=== PATIENT | female | born 1960 | race Caucasian/White ===

== ENCOUNTER 2016-10-24 08:27 | Emergency (ER) | payer OTHER ==
[2016-10-24] MEDS ORDERED: Sodium Chloride 0.9% 1000 ML 1,000 ML IV STA (08:56)
[2016-10-24] MEDS ORDERED: Sodium Chloride 0.9% 1000 ML 1,000 ML ONE (09:00)
--- NOTE | 2016-10-24 09:03 | ERPHSYRPT ---
- History of Present Illness Time Seen by Provider: 10/24/16 08:52 Source: patient Exam Limitations: no limitations Patient Subjective Stated Complaint: pt co weakness that started this morning, pt has been ill since friday with abd pain, no vomitng or loose stools, started eating yesterday,has eat today, pt denies any pain Triage Nursing Assessment: pt alert, walked in and undressed seld,but appears weak, has vague syptoms, resp easy, skin w/d, no edema and no pain Physician History: 56-year-old white female arrives with complaint of feeling weak since today she states she's been having palpitations today she states that she has been having low suprapubic abdominal pain since Friday she has no vomiting no diarrhea no melena no hematochezia she states that she has had similar symptoms in the past and she said noted to have hypokalemia she does state that she had her potassium checked last week and this was 3.8. Patient without fever. Past medical history includes high blood pressure, mitral valve prolapse. Spell surgical history includes appendectomy cholecystectomy Timing/Duration: other (suprapubic abdominal pain for 2 days, weak today palpitations today) Severity: moderate Modifying Factors: Worsens With: eating, immobilization, medication, movement, rest, acetaminophen, ibuprofen Associated Symptoms: abdominal pain, malaise, weakness, other (palpitations), No nausea, No vomiting, No shortness of breath, No heartburn, No diaphoresis, No cough, No chills, No chest pain, No fever, No headaches, No loss of appetite , No rash, No syncope, No seizure Allergies/Adverse Reactions: No Known Drug Allergies Allergy (Verified 10/24/16 08:39) Home Medications: Aspirin [Aspir-Low] 81 mg DAILY 10/24/16 [History] Nebivolol HCl [Bystolic] 5 mg DAILY 10/24/16 [History] Potassium Chloride 10 Meq Tab* [Klor Con 10 MEQ] 10 meq BID 10/24/16 [History ] Hx Influenza Vaccination/Date Given: No Hx Pneumococcal Vaccination/Date Given: No Immunizations Up to Date: Yes - Review of Systems Constitutional: Fatigue, Malaise, Weakness, No Fever, No Chills, No Lethargy, No Night Sweats, No Weight Loss Eyes: No Symptoms Ears, Nose, & Throat: No Symptoms, No Ear Pain, No Ear Discharge, No Hearing Changes, No Tinnitus, No Nose Pain, No Nose Congestion, No Nose Discharge, No Sinus Drainage, No Epistaxis, No Mouth Pain, No Mouth Swelling, No Loose Teeth, No Throat Pain, No Throat Swelling, No Hoarse, No Painful Swallowing, No Snoring , No Stridor Respiratory: No Cough, No Dyspnea Cardiac: Palpitations, No Chest Pain, No Edema, No Syncope, No Orthopnea Abdominal/Gastrointestinal: Abdominal Pain (suprapubic abdominal pain), No Nausea, No Vomiting, No Diarrhea, No Constipation, No Hematemesis, No Hematochezia, No Melena, No Dysphagia, No Appetite Changes Genitourinary Symptoms: No Dysuria, No Frequency, No Hematuria, No Hesitancy, No Incontinence, No Urgency, No Urinary Retention, No Flank Pain, No Menorrhagia , No , No Vaginal Bleeding, No Vaginal Discharge, No Vaginal Itching Musculoskeletal: No Back Pain, No Neck Pain Skin: No Rash Neurological: No Dizziness, No Focal Weakness, No Sensory Changes Psychological: No Symptoms Endocrine: No Symptoms All Other Systems: Reviewed and Negative - Past Medical History Pertinent Past Medical History: Yes Neurological History: No Pertinent History ENT History: No Pertinent History Cardiac History: Hypertension, Other Respiratory History: No Pertinent History Endocrine Medical History: No Pertinent History Musculoskeletal History: No Pertinent History GI Medical History: No Pertinent History History: No Pertinent History Psycho-Social History: No Pertinent History Female Reproductive Disorders: No Pertinent History Other Medical History: mitral valve prolapse - Past Surgical History Past Surgical History: Yes Neuro Surgical History: No Pertinent History Cardiac: No Pertinent History Respiratory: No Pertinent History Gastrointestinal: Appendectomy, Cholecystectomy Genitourinary: No Pertinent History Musculoskeletal: No Pertinent History Female Surgical History: No Pertinent History - Social History Smoking Status: Never smoker Exposure to second hand smoke: No Drug Use: none Patient Lives Alone: No - Female History Hx Last Menstrual Period: post - Nursing Vital Signs Nursing Vital Signs: Initial Vital Signs Temperature 97.9 F Temperature Source Oral Pulse Rate 88 Respiratory Rate 16 Blood Pressure [Right Arm] 130/64 Pain Intensity 0 - Physical Exam General Appearance: mild distress, alert, No moderate distress, No severe distress Eye Exam: PERRL/EOMI, eyes nml inspection, No scleral icterus, No pale conjunctivae, No photophobia, No post op pupil defect (L), No post op pupil defect (R), No EOM palsy/anisocoria Ears, Nose, Throat Exam: normal ENT inspection, TMs normal, pharynx normal, moist mucous membranes Neck Exam: normal inspection, non-tender, supple, full range of motion Respiratory Exam: normal breath sounds, lungs clear, No respiratory distress Cardiovascular Exam: regular rate/rhythm, normal heart sounds, normal peripheral pulses Gastrointestinal/Abdomen Exam: soft, normal bowel sounds, tenderness ( suprapubic abdominal tenderness), No mass Back Exam: normal inspection, normal range of motion, No CVA tenderness, No vertebral tenderness Extremity Exam: normal inspection, normal range of motion, pelvis stable Neurologic Exam: alert, oriented x 3, cooperative, normal mood/affect, nml cerebellar function, nml station & gait, sensation nml, No motor deficits Skin Exam: normal color, warm, dry, No rash SpO2 Interpretation: normal (100%) SpO2: 100 Oxygen Delivery: Room Air - Course Nursing assessment & vital signs reviewed: Yes EKG Interpreted by Me: RATE (65 bpm), Sinus Rhythm, NORMAL AXIS, NORMAL QRS, Other (EKG: Sinus rhythm 65 bpm normal axis, no acute ST or T wave changes essentially normal EKG) Ordered Tests: Active Orders 24 hr Category Date Time Status EKG-ER Only STAT Care 10/24/16 08:56 Active IV Insertion STAT Care 10/24/16 08:56 Active Orthostatic Vital Signs STAT Care 10/24/16 10:24 Active AMYLASE Stat Lab 10/24/16 09:00 Completed CBC W DIFF Stat Lab 10/24/16 09:00 Completed CMP Stat Lab 10/24/16 09:00 Completed HCG QUALITATIVE,SERUM Stat Lab 10/24/16 09:00 Completed LIPASE Stat Lab 10/24/16 09:00 Completed TROPONIN Stat Lab 10/24/16 09:00 Completed UA W/ MICROSCOPIC Stat Lab 10/24/16 10:00 Completed Urine Triage Profile Stat Lab 10/24/16 09:00 Completed Medication Summary Discontinued Medications Generic Name Dose Route Start Last Admin Trade Name Freq PRN Reason Stop Dose Admin Sodium Chloride 1,000 mls @ 999 mls/hr 10/24/16 08:56 10/24/16 09:11 Sodium Chloride 0.9% 1000 Ml IV 10/24/16 09:56 999 mls/hr .Q1H1M STA Administration Sodium Chloride Confirm 10/24/16 09:00 Sodium Chloride 0.9% 1000 Ml Administered 10/24/16 09:01 Dose 1,000 mls @ ud .ROUTE .STK-MED ONE Lab/Rad Data: Laboratory Result Diagrams 10/24/16 09:00 10/24/16 09:00 Laboratory Results 10/24/16 10/24/16 10/24/16 Range/Units 10:00 09:00 09:00 WBC (4.0-10.5) K/mm3 RBC (4.1-5.4) M/mm3 Hgb (12.0-16.0) gm/dl Hct (35-47) % MCV (78-100) fl MCH (26-32) pg MCHC (32-36) g/dl RDW (11.5-14.0) % Plt Count (150-450) K/mm3 MPV (6-9.5) fl Gran % (36.0-66.0) % Lymphocytes % (24.0-44.0) % Monocytes % (0.0-12.0) % Eosinophils % (0.00-5.0) % Basophils % (0.0-0.4) % Basophils # (0-0.4) Sodium (136-145) mEq/L Potassium (3.5-5.1) mEq/L Chloride (98-107) mEq/L Carbon Dioxide (21-32) mEq/L Anion Gap (5-15) MEQ/L BUN (9-20) mg/dL Creatinine (0.55-1.30) mg/dl Estimated GFR ML/MIN Glucose (70-110) MG/DL Calcium (8.5-10.1) mg/dL Total Bilirubin (0.2-1.0) mg/dL AST (15-37) U/L ALT (12-78) U/L Alkaline Phosphatase (46-116) U/L Troponin I (0.000-0.056) ng/ml Serum Total Protein (6.4-8.2) gm/dL Albumin (3.4-5.0) g/dL Amylase (25-115) U/L Lipase (73-393) U/L Serum , Qual NEGATIVE (Negative) Ur Collection Type CLEAN CATCH Urine Color YELLOW (YELLOW) Urine Appearance CLEAR (CLEAR) Urine pH 5.0 (5-6) Ur Specific [place] <=1.005 (1.005-1.025) Urine Protein NEGATIVE (Negative) Urine Glucose (UA) NEGATIVE (NEGATIVE) mg/dL Urine Ketones NEGATIVE (NEGATIVE) Urine Nitrite NEGATIVE (NEGATIVE) Urine Bilirubin NEGATIVE (NEGATIVE) Urine Urobilinogen 0.2 (0-1) mg/dL Urine WBC (Auto) TRACE (NEGATIVE) Urine RBC (Auto) MODERATE (0-5) Nathan/ul Urine Microscopic RBC 0-2 (0-2) /HPF Urine Microscopic WBC 0-2 (0-5) /HPF Ur Epithelial Cells FEW (FEW) /HPF Urine Bacteria FEW (NEGATIVE) /HPF Urine Opiates Level (NEGATIVE) Ur Methadone (NEGATIVE) Urine Barbiturates (NEGATIVE) Ur Phencyclidine (PCP) (NEGATIVE) Urine Amphetamine (NEGATIVE) U Benzodiazepine Level (NEGATIVE) Urine Cocaine (NEGATIVE) Urine Marijuana (THC) (NEGATIVE) Influenza Type A Ag NEGATIVE (NEGATIVE) Influenza Type B Ag NEGATIVE (NEGATIVE) RSV (PCR) NEGATIVE (Negative) Specimen Received 10/24/16 1000 10/24/16 10/24/16 10/24/16 Range/Units 09:00 09:00 09:00 WBC 9.3 (4.0-10.5) K/mm3 RBC 4.65 (4.1-5.4) M/mm3 Hgb 14.6 (12.0-16.0) gm/dl Hct 43.3 (35-47) % MCV 93.1 (78-100) fl MCH 31.4 (26-32) pg MCHC 33.7 (32-36) g/dl RDW 12.7 (11.5-14.0) % Plt Count 276 (150-450) K/mm3 MPV 10.2 H (6-9.5) fl Gran % 71.7 H (36.0-66.0) % Lymphocytes % 22.4 L (24.0-44.0) % Monocytes % 4.5 (0.0-12.0) % Eosinophils % 1.2 (0.00-5.0) % Basophils % 0.2 (0.0-0.4) % Basophils # 0.02 (0-0.4) Sodium 140 (136-145) mEq/L Potassium 3.5 (3.5-5.1) mEq/L Chloride 102 (98-107) mEq/L Carbon Dioxide 26.2 (21-32) mEq/L Anion Gap 15.6 H (5-15) MEQ/L BUN 16 (9-20) mg/dL Creatinine 1.07 (0.55-1.30) mg/dl Estimated GFR 56 ML/MIN Glucose 116 H (70-110) MG/DL Calcium 9.5 (8.5-10.1) mg/dL Total Bilirubin 0.3 (0.2-1.0) mg/dL AST 20 (15-37) U/L ALT 24 (12-78) U/L Alkaline Phosphatase 98 (46-116) U/L Troponin I < 0.017 (0.000-0.056) ng/ml Serum Total Protein 8.1 (6.4-8.2) gm/dL Albumin 3.7 (3.4-5.0) g/dL Amylase 54 (25-115) U/L Lipase 125 (73-393) U/L Serum , Qual (Negative) Ur Collection Type Urine Color (YELLOW) Urine Appearance (CLEAR) Urine pH (5-6) Ur Specific [place] (1.005-1.025) Urine Protein (Negative) Urine Glucose (UA) (NEGATIVE) mg/dL Urine Ketones (NEGATIVE) Urine Nitrite (NEGATIVE) Urine Bilirubin (NEGATIVE) Urine Urobilinogen (0-1) mg/dL Urine WBC (Auto) (NEGATIVE) Urine RBC (Auto) (0-5) Nathan/ul Urine Microscopic RBC (0-2) /HPF Urine Microscopic WBC (0-5) /HPF Ur Epithelial Cells (FEW) /HPF Urine Bacteria (NEGATIVE) /HPF Urine Opiates Level NEG. (NEGATIVE) Ur Methadone NEG. (NEGATIVE) Urine Barbiturates NEG. (NEGATIVE) Ur Phencyclidine (PCP) NEG. (NEGATIVE) Urine Amphetamine NEG. (NEGATIVE) U Benzodiazepine Level NEG. (NEGATIVE) Urine Cocaine NEG. (NEGATIVE) Urine Marijuana (THC) NEG. (NEGATIVE) Influenza Type A Ag (NEGATIVE) Influenza Type B Ag (NEGATIVE) RSV (PCR) (Negative) Specimen Received - Progress Progress: improved Progress Note: 10/24/16 10:43 Is a 56-year-old white female with history of mitral valve prolapse high blood pressure arrives with complaint of abdominal pain suprapubic region for 2 days today states she feels weak. On physical examination she had minimal tenderness in the suprapubic region she had normal neurologic exam heart was regular abdomen was nontender lungs were clear patient is afebrile vitals are stable. Patient is given a liter of normal saline she is feeling better. Patient was noted to have EKG normal sinus rhythm [address] or T wave changes essentially normal EKG chemistry was remarkable for a potassium of 3.5. Sodium is 140 chloride 102 bicarbonate 26 glucose 116. Influenza is negative troponin is normal amylase and lipase are normal urinalysis specific gravity less than 1.005 otherwise normal (patient states she 's been drinking lots of fluid patient has been given 1 L of normal saline she is feeling better Will give patient potassium 20 mEq orally. Will discharge patient. Diagnosis suprapubic abdominal pain. Weakness. . . - Departure Time of Disposition: 10:46 Departure Disposition: Home Clinical Impression: Suprapubic abdominal pain, Weakness Condition: Fair Critical Care Time: No Additional Instructions: Return home rest. Plenty of fluids. Continue medications as prescribed by your family doctor. Follow-up with your family doctor. Return for acute distress or for severe symptoms.
[2016-10-24 09:25] LABS: BASOPHIL % 0.2 % (0.0-0.4); Eosinophil % 1.2 % (0.00-5.0); Granulocytes % 71.7 % (36.0-66.0); Lymphocytes % 22.4 % (24.0-44.0); Mean Cell Volume 93.1 fl (78-100); Mean Corpuscular Hemoglobin 31.4 pg (26-32); Mean Platelet Volume 10.2 fl (6-9.5); Monocytes % 4.5 % (0.0-12.0); Platelet Count 276 K/mm3 (150-450); Red Blood Count 4.65 M/mm3 (4.1-5.4); Red Cell Distribution Width 12.7 % (11.5-14.0); White Blood Count 9.3 K/mm3 (4.0-10.5)
[2016-10-24 09:50] LABS: ALBUMIN 3.7 g/dL (3.4-5.0); ALKALINE PHOSPHATASE 98 U/L (46-116); ANION GAP 15.6 MEQ/L (5-15); BILIRUBIN,TOTAL 0.3 mg/dL (0.2-1.0); BLOOD UREA NITROGEN 16 mg/dL (9-20); CHLORIDE 102 mEq/L (98-107); Carbon Dioxide 26.2 mEq/L (21-32); Glucose 116 MG/DL (70-110); LIPASE 125 U/L (73-393); Potassium 3.5 mEq/L (3.5-5.1); SGOT/AST 20 U/L (15-37); SGPT/ALT 24 U/L (12-78); SODIUM 140 mEq/L (136-145); Total Protein 8.1 gm/dL (6.4-8.2)
[2016-10-24 09:51] LABS: TROPONIN < 0.017 ng/ml (0.000-0.056)
[2016-10-24 10:27] LABS: Collection Type CLEAN CATCH
[2016-10-24 10:30] LABS: COMPLETE URINE MICROSCOPIC? YES
[2016-10-24 10:36] LABS: Bacteria FEW /HPF (NEGATIVE); Epithelial Cells FEW /HPF (FEW); WBC 0-2 /HPF (0-5)
[2016-10-24] MEDS ORDERED: Klor Con 10 MEQ PO ONE ×2 (10:42→10:45)
[2016-10-24 10:56] VITALS: BP 135/61; PULSE 80; O2SAT 98
== END 2016-10-24 10:56 | disposition home or self-care (01) ==
LOC: ED 08:27
DX: R10.9 Unspecified abdominal pain (principal); R53.1 Weakness; R00.2 Palpitations; R53.83 Other fatigue; Z87.898 Personal history of other specified conditions; I10 Essential (primary) hypertension
CPT/HCPCS: 36000; 36415; 80053; 80307; 81000; 82150; 83690; 84484; 84703; 85025; 87631; 93005; 96360; 96361; 99284

== ENCOUNTER 2017-09-07 07:09 | Emergency (ER) | payer OTHER ==
[2017-09-07] MEDS ORDERED: Sodium Chloride 0.9% 1000 ML 1,000 ML IV STA ×2 (07:21→07:57)
[2017-09-07] MEDS ORDERED: Sodium Chloride 0.9% 1000 ML 1,000 ML ONE ×2 (07:30→08:35)
[2017-09-07] MEDS ORDERED: Zofran 4 MG/2 ML VIAL IV ONE (07:34)
[2017-09-07] MEDS ORDERED: Zofran 4 MG/2 ML VIAL ONE (07:34)
[2017-09-07 07:35] LABS: BASOPHIL % 0.6 % (0.0-0.4); Basophil (Absolute #) 0.03 (0-0.4); Eosinophil % 0.4 % (0.00-5.0); Eosinophil (Absolute #) 0.02 (0-0.5); Granulocyte Absolute (ANC) 1.86 (1.4-6.9); Granulocytes % 38.6 % (36.0-66.0); Hematocrit 49.2 % (35-47); Hemoglobin 16.4 gm/dl (12.0-16.0); Lymphocyte (Absolute #) 2.15 (1.0-4.6); Lymphocytes % 44.6 % (24.0-44.0); Mean Corpuscular Hgb Concent. 33.3 g/dl (32-36); Mean Platelet Volume 10.3 fl (6-9.5); Monocyte (Absolute #) 0.76 (0.0-1.3); Monocytes % 15.8 % (0.0-12.0); Platelet Count 232 K/mm3 (150-450); Red Blood Count 5.35 M/mm3 (4.1-5.4); Red Cell Distribution Width 12.8 % (11.5-14.0); White Blood Count 4.8 K/mm3 (4.0-10.5)
[2017-09-07 07:42] LABS: Mean Corpuscular Hemoglobin 30.6 pg (26-32)
[2017-09-07 07:56] LABS: ALBUMIN 4.4 g/dL (3.4-5.0); ANION GAP 10.1 MEQ/L (5-15); BILIRUBIN,TOTAL 0.5 mg/dL (0.2-1.0); Calcium 9.7 mg/dL (8.5-10.1); Carbon Dioxide 28.1 mEq/L (21-32); Creatinine 1 1.15 mg/dl (0.55-1.30); Potassium 3.4 mEq/L (3.5-5.1); Total Protein 8.7 gm/dL (6.4-8.2)
[2017-09-07 08:06] VITALS: O2SAT 98
[2017-09-07] MEDS ORDERED: K-LYTE 25 MEQ PO ONE (08:10)
--- NOTE | 2017-09-07 08:32 | ERPHSYRPT ---
- History of Present Illness Time Seen by Provider: 09/07/17 08:30 Source: patient Exam Limitations: no limitations Patient Subjective Stated Complaint: Pt states she has had nausea over the past 3 days. Denies vomiting, DEnies any diarrhea. STAtes she feels weak and dizzy. Triage Nursing Assessment: PT pink, warm, dry. PT able to transfer from wheelchair to cot without difficulty. abdomen soft nontender. bowel sounds present in all 4 quads. Physician History: Pt states she has had nausea over the past 3 days. Denies vomiting, DEnies any diarrhea. STAtes she feels weak and dizzy. Timing/Duration: day(s) (3 days) Severity: moderate Associated Symptoms: loss of appetite, malaise Allergies/Adverse Reactions: No Known Drug Allergies Allergy (Verified 09/07/17 07:28) Home Medications: Potassium Chloride 10 Meq Tab* [Klor Con 10 MEQ] 10 meq PO BID 10/24/16 [ History] Carvedilol 3.125 mg [Coreg 3.125 MG] 3.125 mg PO BID 09/07/17 [History] Hx Tetanus, Diphtheria Vaccination/Date Given: Yes (unknown) Hx Influenza Vaccination/Date Given: No Hx Pneumococcal Vaccination/Date Given: No Immunizations Up to Date: Yes - Review of Systems Constitutional: Malaise, Weakness, No Fever, No Chills Eyes: No Symptoms Ears, Nose, & Throat: No Symptoms Respiratory: No Cough, No Dyspnea Cardiac: No Chest Pain, No Edema, No Syncope Abdominal/Gastrointestinal: No Abdominal Pain, No Nausea, No Vomiting, No Diarrhea Genitourinary Symptoms: No Dysuria Musculoskeletal: No Back Pain, No Neck Pain Skin: No Rash Neurological: No Dizziness, No Focal Weakness, No Sensory Changes Psychological: No Symptoms Endocrine: No Symptoms All Other Systems: Reviewed and Negative - Past Medical History Pertinent Past Medical History: Yes Neurological History: No Pertinent History ENT History: No Pertinent History Cardiac History: Hypertension Respiratory History: No Pertinent History Endocrine Medical History: No Pertinent History Musculoskeletal History: No Pertinent History GI Medical History: No Pertinent History History: No Pertinent History Psycho-Social History: No Pertinent History Female Reproductive Disorders: No Pertinent History Other Medical History: mitral valve prolapse - Past Surgical History Past Surgical History: Yes Neuro Surgical History: No Pertinent History Cardiac: No Pertinent History Respiratory: No Pertinent History Gastrointestinal: Appendectomy Genitourinary: No Pertinent History Musculoskeletal: No Pertinent History Female Surgical History: No Pertinent History - Social History Smoking Status: Never smoker Exposure to second hand smoke: No Drug Use: none Patient Lives Alone: No - Female History Hx Now: No - Nursing Vital Signs Nursing Vital Signs: Initial Vital Signs Temperature 97.8 F 09/07/17 07:23 Pulse Rate 70 09/07/17 07:23 Respiratory Rate 18 09/07/17 07:23 Blood Pressure 144/81 09/07/17 07:23 O2 Sat by Pulse Oximetry 100 09/07/17 07:23 Pain Scale Pain Intensity 0 - Physical Exam General Appearance: no apparent distress, alert Eye Exam: PERRL/EOMI, eyes nml inspection Ears, Nose, Throat Exam: normal ENT inspection, TMs normal, pharynx normal, moist mucous membranes Neck Exam: normal inspection, non-tender, supple, full range of motion Respiratory Exam: normal breath sounds, lungs clear, No respiratory distress Cardiovascular Exam: regular rate/rhythm, normal heart sounds, normal peripheral pulses Gastrointestinal/Abdomen Exam: soft, normal bowel sounds, No tenderness, No mass Back Exam: normal inspection, normal range of motion, No CVA tenderness, No vertebral tenderness Extremity Exam: normal inspection, normal range of motion, pelvis stable Neurologic Exam: alert, oriented x 3, cooperative, normal mood/affect, nml cerebellar function, nml station & gait, sensation nml, No motor deficits Skin Exam: normal color, warm, dry, No rash Lymphatic Exam: No adenopathy SpO2: 98 Oxygen Delivery: Room Air - Course Nursing assessment & vital signs reviewed: Yes Ordered Tests: Active Orders 24 hr Category Date Time Status IV Insertion STAT Care 09/07/17 07:54 Active CBC W DIFF Stat Lab 09/07/17 07:20 Completed CMP Stat Lab 09/07/17 07:20 Completed Medication Summary Generic Name Dose Route Start Last Admin Trade Name Freq PRN Reason Stop Dose Admin Sodium Chloride 1,000 mls @ 999 mls/hr 09/07/17 07:57 09/07/17 08:36 Sodium Chloride 0.9% 1000 Ml IV 09/07/17 08:57 999 mls/hr .Q1H1M STA Administration Discontinued Medications Generic Name Dose Route Start Last Admin Trade Name Freq PRN Reason Stop Dose Admin Sodium Chloride 1,000 mls @ 999 mls/hr 09/07/17 07:21 09/07/17 07:32 Sodium Chloride 0.9% 1000 Ml IV 09/07/17 08:21 999 mls/hr .Q1H1M STA Administration Sodium Chloride Confirm 09/07/17 07:30 Sodium Chloride 0.9% 1000 Ml Administered 09/07/17 07:31 Dose 1,000 mls @ ud .ROUTE .STK-MED ONE Sodium Chloride Confirm 09/07/17 08:35 Sodium Chloride 0.9% 1000 Ml Administered 09/07/17 08:36 Dose 1,000 mls @ ud .ROUTE .STK-MED ONE Ondansetron HCl 4 mg 09/07/17 07:34 09/07/17 07:35 Zofran 4 Mg/2 Ml Vial IV 09/07/17 07:35 4 mg STAT ONE Administration Ondansetron HCl Confirm 09/07/17 07:34 Zofran 4 Mg/2 Ml Vial Administered 09/07/17 07:35 Dose 4 mg .ROUTE .STK-MED ONE Potassium Bicarbonate 50 meq 09/07/17 08:10 09/07/17 08:37 K-Lyte 25 Meq PO 09/07/17 08:11 50 meq STAT ONE Administration Potassium Bicarbonate Confirm 09/07/17 08:37 K-Lyte 25 Meq Administered 09/07/17 08:38 Dose 50 meq .ROUTE .STK-MED ONE Lab/Rad Data: Laboratory Result Diagrams 09/07/17 07:20 09/07/17 07:20 Laboratory Results 09/07/17 09/07/17 Range/Units 07:20 07:20 WBC 4.8 (4.0-10.5) K/mm3 RBC 5.35 (4.1-5.4) M/mm3 Hgb 16.4 H (12.0-16.0) gm/dl Hct 49.2 H (35-47) % MCV 92.0 (78-100) fl MCH 30.6 (26-32) pg MCHC 33.3 (32-36) g/dl RDW 12.8 (11.5-14.0) % Plt Count 232 (150-450) K/mm3 MPV 10.3 H (6-9.5) fl Gran % 38.6 (36.0-66.0) % Lymphocytes % 44.6 H (24.0-44.0) % Monocytes % 15.8 H (0.0-12.0) % Eosinophils % 0.4 (0.00-5.0) % Basophils % 0.6 (0.0-0.4) % Basophils # 0.03 (0-0.4) Sodium 130 L (136-145) mEq/L Potassium 3.4 L (3.5-5.1) mEq/L Chloride 95 L (98-107) mEq/L Carbon Dioxide 28.1 (21-32) mEq/L Anion Gap 10.1 (5-15) MEQ/L BUN 16 (9-20) mg/dL Creatinine 1.15 (0.55-1.30) mg/dl Estimated GFR 52 ML/MIN Glucose 112 H (70-110) MG/DL Calcium 9.7 (8.5-10.1) mg/dL Total Bilirubin 0.50 (0.2-1.0) mg/dL AST 35 (15-37) U/L ALT 39 (12-78) U/L Alkaline Phosphatase 88 (46-116) U/L Serum Total Protein 8.7 H (6.4-8.2) gm/dL Albumin 4.4 (3.4-5.0) g/dL - Progress Progress: improved Counseled pt/family regarding: lab results, diagnosis, need for follow-up - Departure Time of Disposition: 08:45 Departure Disposition: Home Clinical Impression: Influenza A Condition: Stable Critical Care Time: No Referrals: GEORGE LUNA MD [Primary Care Provider] - Instructions: Flu, Adult (DC) Additional Instructions: VIRAL ILLNESS 1. Rest at home and take any prescribed medications as directed or until gone. 2. Offer plenty of fluids as tolerated. 3. Acetaminophen or Ibuprofen as directed. 4. Be sure to follow up with your family physician or return to the emergency department if symptoms change or become worse.
[2017-09-07] MEDS ORDERED: K-LYTE 25 MEQ ONE (08:37)
[2017-09-07 09:06] LABS: INFLUENZA A POSITIVE (NEGATIVE); INFLUENZA B NEGATIVE (NEGATIVE); RESPIRATORY SYNCTIAL VIRUS NEGATIVE (Negative)
[2017-09-07 10:30] VITALS: BP 109/70; PULSE 69
== END 2017-09-07 10:15 | disposition home or self-care (01) ==
LOC: ED 07:09
DX: J11.1 Influenza due to unidentified influenza virus with other respiratory manifestations (principal)
CPT/HCPCS: 36000; 36415; 80053; 85025; 87631; 96360; 96361; 96374; 99284; J2405; A9270-GY

== ENCOUNTER 2019-03-18 08:47 | Emergency (ER) | payer OTHER ==
[2019-03-18] MEDS ORDERED: Sodium Chloride 0.9% 1000 ML 1,000 ML IV SCH (09:30)
[2019-03-18 09:39] LABS: INR 0.97 (0.8-3.0)
[2019-03-18 09:41] LABS: BASOPHIL % 0.3 % (0.0-0.4); Basophil (Absolute #) 0.02 (0-0.4); Eosinophil % 0.7 % (0.00-5.0); Eosinophil (Absolute #) 0.05 (0-0.5); Granulocyte Absolute (ANC) 4.47 (1.4-6.9); Granulocytes % 65.5 % (36.0-66.0); Hematocrit 48.1 % (35-47); Hemoglobin 16.5 gm/dl (12.0-16.0); Lymphocyte (Absolute #) 2.05 (1.0-4.6); Mean Cell Volume 92.5 fl (78-100); Mean Corpuscular Hemoglobin 31.7 pg (26-32); Mean Corpuscular Hgb Concent. 34.3 g/dl (32-36); Mean Platelet Volume 10.5 fl (6-9.5); Monocyte (Absolute #) 0.24 (0.0-1.3); Monocytes % 3.5 % (0.0-12.0); Platelet Count 304 K/mm3 (150-450); Red Cell Distribution Width 12.6 % (11.5-14.0); White Blood Count 6.8 K/mm3 (4.0-10.5)
[2019-03-18] MEDS ORDERED: APRESOLINE 20 MG/ML INJ IV ONE (09:41)
[2019-03-18] MEDS ORDERED: ANTIVERT 25 MG PO ONE (09:42)
[2019-03-18 09:47] LABS: ALKALINE PHOSPHATASE 92 U/L (38-126); ANION GAP 12.2 MEQ/L (5-15); BLOOD UREA NITROGEN 15 mg/dL (7-17); CHLORIDE 106 mmol/L (98-107); Calcium 10.3 mg/dL (8.4-10.2); Carbon Dioxide 28 mmol/L (22-30); Creatinine 1 0.83 mg/dL (0.52-1.04); Glucose 138 mg/dL (74-106); Potassium 3.8 mmol/L (3.5-5.1); SGOT/AST 27 U/L (14-36); SGPT/ALT 24 U/L (0-35); SODIUM 142 mmol/L (137-145); Total Protein 8.7 g/dL (6.3-8.2)
[2019-03-18] MEDS ORDERED: Sodium Chloride 0.9% 1000 ML 1,000 ML ONE (09:52)
[2019-03-18] MEDS ORDERED: Zofran 4 MG/2 ML VIAL IV ONE (09:52)
[2019-03-18] MEDS ORDERED: APRESOLINE 20 MG/ML INJ ONE (09:52)
[2019-03-18] MEDS ORDERED: ANTIVERT 25 MG ONE (09:52)
[2019-03-18] MEDS ORDERED: SUBLIMAZE 100 MCG/2 ML IV ONE (09:52)
--- NOTE | 2019-03-18 10:01 | ERPHSYRPT ---
- History of Present Illness Time Seen by Provider: 03/18/19 09:15 Source: patient Exam Limitations: clinical condition Patient Subjective Stated Complaint: states had onset of dizziness when getting out of bed this am. states it is getting worse. also having nausea. denies v/ d. denies any recent illness. Triage Nursing Assessment: to room per w/c. skin w/d, color normal, resp easy. denies pain. is having some nausea. justen. a/o times four. martínez without difficulty. Physician History: PATIENT WITH A HISTORY OF HYPERTENSION AND MITRAL VALVE PROLAPSE COMPLAINS OF ACUTE ONSET OF LIGHTHEADEDNESS ONSET 0530 THIS AM. SYMPTOMS OF LIGHTHEADEDNESS PROGRESSIVELY WORSE ASSOCIATED WITH NAUSEA, STATES LIKE SHE FEELS LIKE PASSING OUT. BRITTANY BLURRED VISION, SLURRED SPEECH, FOCAL NUMBNESS, WEAKNESS OR TINGLING IN EXTREMITIES. Timing/Duration: today Severity: severe Character of Deficits: other (MARKED LIGHTHEADEDNESS) Deficits: decrease ability to stand Baseline/Normal Cognition: alert oriented x 3 Current Cognition: alert oriented x 3 Baseline Gait: walks w/o assistance Allergies/Adverse Reactions: No Known Drug Allergies Allergy (Verified 03/18/19 09:03) Home Medications: Potassium Chloride 10 Meq Tab* [Klor Con 10 MEQ] 10 meq PO DAILY 10/24/16 [ History] Carvedilol 3.125 mg [Coreg 3.125 MG] 3.125 mg PO DAILY 09/07/17 [History] Hx Tetanus, Diphtheria Vaccination/Date Given: No Hx Influenza Vaccination/Date Given: No Hx Pneumococcal Vaccination/Date Given: No - Review of Systems Constitutional: No Fever, No Chills Eyes: No Symptoms Ears, Nose, & Throat: No Symptoms Respiratory: No Symptoms, No Cough, No Dyspnea Cardiac: No Symptoms, No Chest Pain, No Edema, No Syncope Abdominal/Gastrointestinal: No Symptoms, No Abdominal Pain, No Nausea, No Vomiting, No Diarrhea Genitourinary Symptoms: No Symptoms, No Dysuria Musculoskeletal: No Symptoms, No Back Pain, No Neck Pain Skin: No Symptoms, No Rash Neurological: No Dizziness, No Focal Weakness, No Sensory Changes, No Other ( LIGHTHEADEDNESS) Psychological: No Symptoms Endocrine: No Symptoms All Other Systems: Reviewed and Negative - Past Medical History Pertinent Past Medical History: Yes Neurological History: No Pertinent History ENT History: No Pertinent History Cardiac History: Hypertension Respiratory History: No Pertinent History Endocrine Medical History: No Pertinent History Musculoskeletal History: No Pertinent History GI Medical History: No Pertinent History History: No Pertinent History Psycho-Social History: No Pertinent History Female Reproductive Disorders: No Pertinent History Other Medical History: mitral valve prolapse - Past Surgical History Past Surgical History: Yes Neuro Surgical History: No Pertinent History Cardiac: No Pertinent History Respiratory: No Pertinent History Gastrointestinal: Appendectomy Genitourinary: No Pertinent History Musculoskeletal: No Pertinent History Female Surgical History: No Pertinent History - Social History Smoking Status: Never smoker Exposure to second hand smoke: No Drug Use: none Patient Lives Alone: No - Female History Hx Now: No - Nursing Vital Signs Nursing Vital Signs: Initial Vital Signs Temperature 98.5 F 03/18/19 08:55 Pulse Rate 74 03/18/19 08:55 Respiratory Rate 16 03/18/19 08:55 Blood Pressure 188/78 03/18/19 08:55 O2 Sat by Pulse Oximetry 100 03/18/19 08:55 Pain Scale Pain Intensity 0 - Physical Exam General Appearance: no apparent distress, alert Eye Exam: bilateral eye: PERRL, EOMI Ears, Nose, Throat Exam: normal ENT inspection, moist mucous membranes Neck Exam: normal inspection, non-tender, supple Respiratory: normal breath sounds, lungs clear, airway intact, No respiratory distress Cardiovascular: regular rate/rhythm, No edema Gastrointestinal: soft, normal bowel sounds, No tenderness, No distention Back Exam: normal inspection Extremity Exam: normal inspection, No pedal edema Peripheral Pulses: carotid (R): 2+, carotid (L): 2+, femoral (R): 2+, femoral (L ): 2+, dorsalis-pedis (R): 2+ Mental Status: alert, oriented x 3, 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 Exam: tongue midline Coordination/Gait: normal finger to nose, normal gait Motor/Sensory: no motor deficit, no sensory deficit DTR: bicep (R): 2+, bicep (L): 2+, tricep (R): 2+, tricep (L): 2+, knee (R): 2+ , knee (L): 2+, ankle (R): 2+, ankle (L): 2+ Skin Exam: normal color, warm, dry, No rash SpO2 Interpretation: normal SpO2: 100 - Course EKG Interpreted by Me: Sinus Rhythm, NORMAL AXIS - CT Exams Head CT Interpretation: Discussed w/radiologist, No/Intracranial Hemorrhag Ordered Tests: Active Orders 24 hr Category Date Time Status Roll Contour Grinder STAT Care 03/18/19 09:30 Active EKG-ER Only STAT Care 03/18/19 09:29 Active CHEST 1 VIEW (PORTABLE) Stat Exams 03/18/19 09:30 Completed HEAD WITHOUT CONTRAST [CT] Stat Exams 03/18/19 09:30 Completed CBC W DIFF Stat Lab 03/18/19 09:37 Completed CMP Stat Lab 03/18/19 09:37 Completed MAGNESIUM Routine Lab 03/18/19 09:37 Completed PROTIME WITH INR Stat Lab 03/18/19 09:37 Completed TROPONIN Q3H Lab 03/18/19 09:37 Completed TROPONIN Q3H Lab 03/18/19 12:45 Ordered TROPONIN Q3H Lab 03/18/19 15:45 Ordered TROPONIN Q3H Lab 03/18/19 18:45 Ordered TROPONIN Q3H Lab 03/18/19 21:45 Ordered UA W/RFX UR CULTURE Stat Lab 03/18/19 10:03 Completed Urine Triage Profile Stat Lab 03/18/19 10:03 Completed Medication Summary Generic Name Dose Route Start Last Admin Trade Name Freq PRN Reason Stop Dose Admin Sodium Chloride 1,000 mls @ 50 mls/hr 03/18/19 09:30 03/18/19 09:58 Sodium Chloride 0.9% 1000 Ml IV 04/17/19 09:29 50 mls/hr .Q20H SHAY Administration Discontinued Medications Generic Name Dose Route Start Last Admin Trade Name Freq PRN Reason Stop Dose Admin Fentanyl Citrate 25 mcg 03/18/19 09:52 03/18/19 10:01 Sublimaze 100 Mcg/2 Ml IV 03/18/19 09:53 Not Given STAT ONE Hydralazine HCl 10 mg 03/18/19 09:41 03/18/19 09:57 Apresoline 20 Mg/Ml Inj IV 03/18/19 09:42 10 mg STAT ONE Administration Hydralazine HCl Confirm 03/18/19 09:52 Apresoline 20 Mg/Ml Inj Administered 03/18/19 09:53 Dose 20 mg .ROUTE .STK-MED ONE Meclizine HCl 25 mg 03/18/19 09:42 03/18/19 09:58 Antivert 25 Mg PO 03/18/19 09:43 25 mg STAT ONE Administration Meclizine HCl Confirm 03/18/19 09:52 Antivert 25 Mg Administered 03/18/19 09:53 Dose 25 mg .ROUTE .STK-MED ONE Ondansetron HCl 4 mg 03/18/19 09:52 03/18/19 10:02 Zofran 4 Mg/2 Ml Vial IV 03/18/19 09:53 Not Given STAT ONE Lab/Rad Data: Laboratory Result Diagrams 03/18/19 09:37 03/18/19 09:37 Laboratory Results 03/18/19 03/18/19 03/18/19 Range/Units 10:03 10:03 09:37 WBC (4.0-10.5) K/mm3 RBC (4.1-5.4) M/mm3 Hgb (12.0-16.0) gm/dl Hct (35-47) % MCV (78-100) fl MCH (26-32) pg MCHC (32-36) g/dl RDW (11.5-14.0) % Plt Count (150-450) K/mm3 MPV (6-9.5) fl Gran % (36.0-66.0) % Eos # (Auto) (0-0.5) Absolute Lymphs (auto) (1.0-4.6) Absolute Monos (auto) (0.0-1.3) Lymphocytes % (24.0-44.0) % Monocytes % (0.0-12.0) % Eosinophils % (0.00-5.0) % Basophils % (0.0-0.4) % Absolute Granulocytes (1.4-6.9) Basophils # (0-0.4) PT (9.95-12.35) SECONDS INR (0.8-3.0) Sodium (137-145) mmol/L Potassium (3.5-5.1) mmol/L Chloride (98-107) mmol/L Carbon Dioxide (22-30) mmol/L Anion Gap (5-15) MEQ/L BUN (7-17) mg/dL Creatinine (0.52-1.04) mg/dL Estimated GFR ML/MIN Glucose (74-106) mg/dL Calcium (8.4-10.2) mg/dL Magnesium 2.1 (1.6-2.3) mg/dL Total Bilirubin (0.2-1.3) mg/dL AST (14-36) U/L ALT (0-35) U/L Alkaline Phosphatase (38-126) U/L Troponin I < 0.012 (0.000-0.034) ng/mL Serum Total Protein (6.3-8.2) g/dL Albumin (3.5-5.0) g/dL Urine Color YELLOW (YELLOW) Urine Appearance CLEAR (CLEAR) Urine pH 6.0 (5-6) Ur Specific [place] 1.011 (1.005-1.025) Urine Protein NEGATIVE (Negative) Urine Ketones NEGATIVE (NEGATIVE) Urine Blood MODERATE (0-5) Nathan/ul Urine Nitrite NEGATIVE (NEGATIVE) Urine Bilirubin NEGATIVE (NEGATIVE) Urine Urobilinogen NEGATIVE (0-1) mg/dL Ur Leukocyte Esterase NEGATIVE (NEGATIVE) Urine WBC (Auto) NONE (0-5) /HPF Urine RBC (Auto) 6-10 (0-2) /HPF U Epithel Cells (Auto) RARE (FEW) /HPF Urine Bacteria (Auto) RARE (NEGATIVE) /HPF Urine Culture Reflexed NO (NO) Urine Glucose NEGATIVE (NEGATIVE) mg/dL Urine Opiates Level NEGATIVE (NEGATIVE) Ur Methadone NEGATIVE (NEGATIVE) Urine Barbiturates NEGATIVE (NEGATIVE) Ur Phencyclidine (PCP) NEGATIVE (NEGATIVE) Urine Amphetamine NEGATIVE (NEGATIVE) U Benzodiazepine Level NEGATIVE (NEGATIVE) Urine Cocaine NEGATIVE (NEGATIVE) Urine Marijuana (THC) NEGATIVE (NEGATIVE) 03/18/19 03/18/19 03/18/19 Range/Units 09:37 09:37 09:37 WBC 6.8 (4.0-10.5) K/mm3 RBC 5.20 (4.1-5.4) M/mm3 Hgb 16.5 H (12.0-16.0) gm/dl Hct 48.1 H (35-47) % MCV 92.5 (78-100) fl MCH 31.7 (26-32) pg MCHC 34.3 (32-36) g/dl RDW 12.6 (11.5-14.0) % Plt Count 304 (150-450) K/mm3 MPV 10.5 H (6-9.5) fl Gran % 65.5 (36.0-66.0) % Eos # (Auto) 0.05 (0-0.5) Absolute Lymphs (auto) 2.05 (1.0-4.6) Absolute Monos (auto) 0.24 (0.0-1.3) Lymphocytes % 30.0 (24.0-44.0) % Monocytes % 3.5 (0.0-12.0) % Eosinophils % 0.7 (0.00-5.0) % Basophils % 0.3 (0.0-0.4) % Absolute Granulocytes 4.47 (1.4-6.9) Basophils # 0.02 (0-0.4) PT 11.0 (9.95-12.35) SECONDS INR 0.97 (0.8-3.0) Sodium 142 (137-145) mmol/L Potassium 3.8 (3.5-5.1) mmol/L Chloride 106 (98-107) mmol/L Carbon Dioxide 28 (22-30) mmol/L Anion Gap 12.2 (5-15) MEQ/L BUN 15 (7-17) mg/dL Creatinine 0.83 (0.52-1.04) mg/dL Estimated GFR > 60.0 ML/MIN Glucose 138 H (74-106) mg/dL Calcium 10.3 H (8.4-10.2) mg/dL Magnesium (1.6-2.3) mg/dL Total Bilirubin 0.60 (0.2-1.3) mg/dL AST 27 (14-36) U/L ALT 24 (0-35) U/L Alkaline Phosphatase 92 (38-126) U/L Troponin I (0.000-0.034) ng/mL Serum Total Protein 8.7 H (6.3-8.2) g/dL Albumin 5.0 (3.5-5.0) g/dL Urine Color (YELLOW) Urine Appearance (CLEAR) Urine pH (5-6) Ur Specific [place] (1.005-1.025) Urine Protein (Negative) Urine Ketones (NEGATIVE) Urine Blood (0-5) Nathan/ul Urine Nitrite (NEGATIVE) Urine Bilirubin (NEGATIVE) Urine Urobilinogen (0-1) mg/dL Ur Leukocyte Esterase (NEGATIVE) Urine WBC (Auto) (0-5) /HPF Urine RBC (Auto) (0-2) /HPF U Epithel Cells (Auto) (FEW) /HPF Urine Bacteria (Auto) (NEGATIVE) /HPF Urine Culture Reflexed (NO) Urine Glucose (NEGATIVE) mg/dL Urine Opiates Level (NEGATIVE) Ur Methadone (NEGATIVE) Urine Barbiturates (NEGATIVE) Ur Phencyclidine (PCP) (NEGATIVE) Urine Amphetamine (NEGATIVE) U Benzodiazepine Level (NEGATIVE) Urine Cocaine (NEGATIVE) Urine Marijuana (THC) (NEGATIVE) - Progress Progress Note: 03/18/19 10:32 IV NORMAL SALINE 100ML/HR, HYDRALAZINE 10MG IV, REPEAT VITAL SIGNS 1028 BP 149/ 72 - Departure Departure Disposition: Home Clinical Impression: HYPERTENSION, VERTIGO Condition: Stable Critical Care Time: No Referrals: GEORGE LUNA MD [Primary Care Provider] - Additional Instructions: BEGIN ANTIVERT 25MG EVERY 8 HOURS FOR LIGHTHEADEDNESS NEEDED. INCREASE COREG TO 3.125MG IN THE AM AND 1/2 TABLET AT NIGHT. CONSULT YOUR PRIMARY CARE PROVIDER TODAY TO SCHEDULE FOLLOWUP APPOINTMENT. RETURN TO EMERGENCY ROOM FOR WORSENING SYMPTOMS. Prescriptions: Meclizine HCl 25 mg [Antivert 25 mg] 25 mg PO Q8H PRN PRN #20 tablet PRN Reason: Dizziness Carvedilol 3.125 mg [Coreg 3.125 MG] 3.125 mg PO DAILY #30 tablet
--- NOTE | 2019-03-18 10:03 | XRAY ---
Indication: Dizziness and lightheaded. Comparison: November 12, 2012. Portable chest again demonstrates normal heart and lungs. Bony thorax intact. No new/acute findings.
--- NOTE | 2019-03-18 10:05 | XRAY ---
Indication: Dizziness and lightheaded. Multiple contiguous axial images obtained through the head without contrast. Comparison: None Normal appearing brain parenchyma, ventricles, and bony calvarium. Visualized paranasal sinuses and mastoid air cells are clear. Impression: Normal CT head without contrast exam. CT DI 70.62
[2019-03-18 10:08] LABS: MAGNESIUM 2.1 mg/dL (1.6-2.3)
[2019-03-18 10:10] LABS: TROPONIN < 0.012 ng/mL (0.000-0.034)
[2019-03-18 10:22] VITALS: O2SAT 100
[2019-03-18 10:24] LABS: Appearance CLEAR (CLEAR); Bacteria RARE /HPF (NEGATIVE); Bilirubin NEGATIVE (NEGATIVE); Blood MODERATE Ery/ul (0-5); Glucose NEGATIVE (NEGATIVE); Ketones NEGATIVE (NEGATIVE); Leukocyte Esterase NEGATIVE (NEGATIVE); Nitrite NEGATIVE (NEGATIVE); Protein,Urine Dip NEGATIVE (Negative); Specific Gravity 1.011 (1.005-1.025); Urobilinogen NEGATIVE mg/dL (0-1)
[2019-03-18 10:25] LABS: Epithelial Cells RARE /HPF (FEW)
[2019-03-18 10:39] LABS: Amphetamine,Urine NEGATIVE (NEGATIVE); Barbiturate,Urine NEGATIVE (NEGATIVE); Benzodiazepine,Urine NEGATIVE (NEGATIVE); Cocaine,Urine NEGATIVE (NEGATIVE); Methadone,Urine NEGATIVE (NEGATIVE); Opiate,Urine NEGATIVE (NEGATIVE); PCP,Urine NEGATIVE (NEGATIVE); THC,Urine NEGATIVE (NEGATIVE)
[2019-03-18 10:54] VITALS: BP 151/71; PULSE 82
== END 2019-03-18 11:03 | disposition home or self-care (01) ==
LOC: ED 08:47
DX: I10 Essential (primary) hypertension (principal); R42 Dizziness and giddiness
CPT/HCPCS: 36000; 36415; 70450; 71045; 80053; 80307; 81001; 83735; 84484; 85025; 85610; 93005; 93041; 96360; 96361; 96374; 96375; 99285; J0360; A9270-GY

== ENCOUNTER 2024-07-23 16:21 | Emergency (ER) | payer MEDICARE, OTHER ==
--- NOTE | 2024-07-23 16:33 | ERPHSYRPT ---
- History of Present Illness Time Seen by Provider: 07/23/24 16:32 Historian: patient, family Exam Limitations: no limitations Physician History: Pt had onset of abd pain today no prior epidoses lower pelvis, Tender lower suprapubic area without rebound or peritoneal signs. nondistended. Discussed with pt and available family risks and benefits of testing/Tx including CBC, CMP, , UA, Amylase, Lipase, CT abd , , pain med, Antibiotic and they wish to proceed so these are ordered. Results discussed with pt and available family. Spouse / family was present in ER to serve as independent source to confirm/collaborate the History. Timing/Duration: today Activities at Onset: none Quality: sharpness Abdominal Pain Onset Location: suprapubic Pain Radiation: no radiation Severity of Pain-Max: moderate Severity of Pain-Current: moderate Modifying Factors: Improves With: nothing Associated Symptoms: nausea, No shortness of breath, No vomiting Previous symptoms: no prior history Allergies/Adverse Reactions: No Known Drug Allergies Allergy (Verified 07/23/24 16:37) Home Medications: Potassium Chloride Tab* [Klor Con 10 MEQ] 10 meq PO DAILY 10/24/16 [History] Carvedilol 3.125 mg [Coreg 3.125 MG] 3.125 mg PO DAILY 09/07/17 [History] Hx Tetanus, Diphtheria Vaccination/Date Given: No Hx Influenza Vaccination/Date Given: No Hx Pneumococcal Vaccination/Date Given: No - Review of Systems Constitutional: No Fever, No Chills Eyes: No Symptoms Ears, Nose, & Throat: No Symptoms Respiratory: No Cough, No Dyspnea Cardiac: No Chest Pain, No Edema, No Syncope Abdominal/Gastrointestinal: Abdominal Pain, Nausea, No Vomiting, No Diarrhea Genitourinary Symptoms: No Dysuria Musculoskeletal: No Back Pain, No Neck Pain Skin: No Rash Neurological: No Dizziness, No Focal Weakness, No Sensory Changes Psychological: No Symptoms Endocrine: No Symptoms Hematologic/Lymphatic: No Symptoms Immunological/Allergic: No Symptoms All Other Systems: Reviewed and Negative - Past Medical History Pertinent Past Medical History: Yes Neurological History: No Pertinent History ENT History: No Pertinent History Cardiac History: Hypertension Respiratory History: No Pertinent History Endocrine Medical History: No Pertinent History Musculoskeletal History: No Pertinent History GI Medical History: No Pertinent History History: No Pertinent History Psycho-Social History: No Pertinent History Female Reproductive Disorders: No Pertinent History Other Medical History: mitral valve prolapse - Past Surgical History Past Surgical History: Yes Neuro Surgical History: No Pertinent History Cardiac: No Pertinent History Respiratory: No Pertinent History Gastrointestinal: Appendectomy Genitourinary: No Pertinent History Musculoskeletal: No Pertinent History Female Surgical History: No Pertinent History - Social History Smoking Status: Never smoker Exposure to second hand smoke: No Drug Use: none Patient Lives Alone: No - Nursing Vital Signs Nursing Vital Signs: Initial Vital Signs Temperature 98.7 F 07/23/24 16:26 Pulse Rate 113 H 07/23/24 16:26 Respiratory Rate 20 07/23/24 16:26 Blood Pressure 183/84 07/23/24 16:26 O2 Sat by Pulse Oximetry 99 07/23/24 16:26 Pain Scale Pain Intensity 4 - Physical Exam General Appearance: no apparent distress, alert Eye Exam: PERRL/EOMI, eyes nml inspection Ears, Nose, Throat Exam: normal ENT inspection, pharynx normal, moist mucous membranes Neck Exam: normal inspection, non-tender, supple, full range of motion Respiratory Exam: normal breath sounds, lungs clear, No respiratory distress Cardiovascular Exam: regular rate/rhythm, normal heart sounds Gastrointestinal/Abdomen Exam: soft, tenderness, No mass Pelvic Exam: deferred Rectal Exam: deferred Back Exam: normal inspection, normal range of motion, No CVA tenderness, No vertebral tenderness Extremity Exam: normal inspection, normal range of motion, pelvis stable Neurologic Exam: alert, oriented x 3, cooperative, normal mood/affect, nml cerebellar function, sensation nml, No motor deficits Skin Exam: normal color, warm, dry SpO2 Interpretation: normal SpO2: 99 O2 Delivery: Room Air - Course Nursing assessment & vital signs reviewed: Yes - CT Exams Abdomen/Pelvis CT Interpretation: Tele-radiologist Report, Other (diverticulitis) Ordered Tests: Active Orders 24 hr Category Date Time Status IV Insertion STAT Care 07/23/24 16:36 Active ABDOMEN AND PELVIS W/0 CONTRAS [CT] Stat Exams 07/23/24 16:37 Taken AMYLASE Stat Lab 07/23/24 17:03 Completed CBC W DIFF Stat Lab 07/23/24 17:03 Completed CMP Stat Lab 07/23/24 17:03 Completed CULTURE,URINE Stat Lab 07/23/24 17:33 Received HCG QUALITATIVE, SERUM Stat Lab 07/23/24 17:03 Completed LIPASE Stat Lab 07/23/24 17:03 Completed Lactic Acid Stat Lab 07/23/24 16:48 Completed UA W/RFX UR CULTURE Stat Lab 07/23/24 17:33 Completed Medication Summary Discontinued Medications Generic Name Dose Route Start Last Admin Trade Name Freq PRN Reason Stop Dose Admin Hydromorphone HCl 1 mg 07/23/24 16:36 07/23/24 16:41 Hydromorphone 1 Mg/1ml Inj IV 07/23/24 16:37 1 mg STAT ONE Administration Hydromorphone HCl Confirm 07/23/24 16:39 Hydromorphone 1 Mg/1ml Inj Administered 07/23/24 16:40 Dose 1 mg .ROUTE .STK-MED ONE Ceftriaxone Sodium 1 gm in 100 mls @ 200 mls/hr 07/23/24 18:30 07/23/24 19:25 Rocephin 1 Gm / 100 Ml Nacl IV 07/23/24 18:59 Infused STAT ONE Infusion Ceftriaxone Sodium Confirm 07/23/24 18:41 Rocephin 1 Gm / 100 Ml Nacl Administered 07/23/24 18:42 Dose 1 gm in 100 mls @ ud IV .STK-MED ONE Ondansetron HCl 4 mg 07/23/24 16:36 07/23/24 16:41 Ondansetron Hcl 4 Mg/2 Ml Vial IV 07/23/24 16:37 4 mg STAT ONE Administration Ondansetron HCl Confirm 07/23/24 16:39 Ondansetron Hcl 4 Mg/2 Ml Vial Administered 07/23/24 16:40 Dose 4 mg .ROUTE .STK-MED ONE Lab/Rad Data: Laboratory Result Diagrams 07/23/24 17:03 07/23/24 17:03 Laboratory Results 07/23/24 07/23/24 07/23/24 Range/Units 17:33 17:03 17:03 WBC (3.98-10.04) x10^3/uL RBC (3.93-5.22) x10^6/uL Hgb (11.2-15.7) g/dL Hct (34.1-44.9) % MCV (79.4-94.8) fL MCH (25.6-32.2) pg MCHC (32.2-35.5) g/dL RDW (11.7-14.4) % Plt Count (182-369) x10^3/uL MPV (9.4-12.3) fL Gran % (34.0-71.1) % Immature Gran % (Auto) (0.001-0.429) % Nucleat RBC Rel Count (0.00-0.2) % Eos # (Auto) (0.04-0.36) x10^3/uL Immature Gran # (Auto) (0.001-0.031) x10^3u/L Absolute Lymphs (auto) (1.18-3.74) x10^3/uL Absolute Monos (auto) (0.24-0.86) x10^3/uL Absolute Nucleated RBC (0.00-0.012) x10^3u/L Lymphocytes % (19.3-51.7) % Monocytes % (4.7-12.5) % Eosinophils % (0.7-5.8) % Basophils % (0.1-1.2) % Absolute Granulocytes (1.56-6.13) x10^3/uL Basophils # (0.01-0.08) x10^3/uL Sodium 136 (135-145) mmol/L Potassium 3.5 (3.5-5.1) mmol/L Chloride 99 (98-107) mmol/L Carbon Dioxide 27 (22-30) mmol/L Anion Gap 13.8 (5-15) MEQ/L BUN 13 (7-17) mg/dL Creatinine 0.92 (0.52-1.04) mg/dL Estimated GFR 69.1 ML/MIN Glucose 111 H (74-106) mg/dL Lactic Acid (0.4-2.0) Calcium 9.7 (8.4-10.2) mg/dL Total Bilirubin 1.00 (0.2-1.3) mg/dL AST 47 H (14-36) U/L ALT 35 (0-35) U/L Alkaline Phosphatase 126 (38-126) U/L Serum Total Protein 8.5 H (6.3-8.2) g/dL Albumin 4.6 (3.5-5.0) g/dL Amylase 78 (30-110) U/L Lipase 66 (23-300) U/L Serum HCG, Qual NEGATIVE (NEGATIVE) Urine Color Yellow (Yellow) Urine Appearance Clear (Clear) Urine pH 5.5 (4.6-8.0) Ur Specific [place] 1.015 (1.005-1.030) Urine Protein 30 (Negative) Urine Glucose (UA) Negative (Negative) mg/dL Urine Ketones 15 A (Negative) Urine Blood Moderate A (Negative) Urine Nitrite Negative (Negative) Urine Bilirubin Negative (Negative) Urine Urobilinogen 1.0 A (0.2) mg/dL Ur Leukocyte Esterase Small A (Negative) U Hyaline Cast (Auto) NONE SEEN (0-2) /LPF Urine Microscopic RBC 11-20 A (0-5) /HPF Urine Microscopic WBC 6-10 A (0-5) /HPF Ur Epithelial Cells None Seen (None Seen) /HPF Urine Bacteria None Seen (None Seen) /HPF Urine Culture Reflexed YES (NO) 07/23/24 07/23/24 Range/Units 17:03 16:48 WBC 15.1 H (3.98-10.04) x10^3/uL RBC 4.78 (3.93-5.22) x10^6/uL Hgb 15.0 (11.2-15.7) g/dL Hct 43.4 (34.1-44.9) % MCV 90.8 (79.4-94.8) fL MCH 31.4 (25.6-32.2) pg MCHC 34.6 (32.2-35.5) g/dL RDW 12.0 (11.7-14.4) % Plt Count 343 (182-369) x10^3/uL MPV 10.1 (9.4-12.3) fL Gran % 73.3 H (34.0-71.1) % Immature Gran % (Auto) 0.3 (0.001-0.429) % Nucleat RBC Rel Count 0.0 (0.00-0.2) % Eos # (Auto) 0.04 (0.04-0.36) x10^3/uL Immature Gran # (Auto) 0.05 H (0.001-0.031) x10^3u/L Absolute Lymphs (auto) 2.96 (1.18-3.74) x10^3/uL Absolute Monos (auto) 0.94 H (0.24-0.86) x10^3/uL Absolute Nucleated RBC 0.00 (0.00-0.012) x10^3u/L Lymphocytes % 19.6 (19.3-51.7) % Monocytes % 6.2 (4.7-12.5) % Eosinophils % 0.3 L (0.7-5.8) % Basophils % 0.3 (0.1-1.2) % Absolute Granulocytes 11.07 H (1.56-6.13) x10^3/uL Basophils # 0.05 (0.01-0.08) x10^3/uL Sodium (135-145) mmol/L Potassium (3.5-5.1) mmol/L Chloride (98-107) mmol/L Carbon Dioxide (22-30) mmol/L Anion Gap (5-15) MEQ/L BUN (7-17) mg/dL Creatinine (0.52-1.04) mg/dL Estimated GFR ML/MIN Glucose (74-106) mg/dL Lactic Acid 1.5 (0.4-2.0) Calcium (8.4-10.2) mg/dL Total Bilirubin (0.2-1.3) mg/dL AST (14-36) U/L ALT (0-35) U/L Alkaline Phosphatase (38-126) U/L Serum Total Protein (6.3-8.2) g/dL Albumin (3.5-5.0) g/dL Amylase (30-110) U/L Lipase (23-300) U/L Serum HCG, Qual (NEGATIVE) Urine Color (Yellow) Urine Appearance (Clear) Urine pH (4.6-8.0) Ur Specific [place] (1.005-1.030) Urine Protein (Negative) Urine Glucose (UA) (Negative) mg/dL Urine Ketones (Negative) Urine Blood (Negative) Urine Nitrite (Negative) Urine Bilirubin (Negative) Urine Urobilinogen (0.2) mg/dL Ur Leukocyte Esterase (Negative) U Hyaline Cast (Auto) (0-2) /LPF Urine Microscopic RBC (0-5) /HPF Urine Microscopic WBC (0-5) /HPF Ur Epithelial Cells (None Seen) /HPF Urine Bacteria (None Seen) /HPF Urine Culture Reflexed (NO) - Progress Progress: improved, re-examined Counseled pt/family regarding: lab results, diagnosis, need for follow-up, rad results Medical Desision Making - Independent Historian Additional History obtained from: Family - Discussion of managment Reviewed:: Test results, Need for additional workup Agreed on:: Treatment plan, need for follow-up - Diagnostic Testing Diagnostic test were ordered, analyzed, and reviewed by me: Yes Radiological Interpretation: Interpreted by me, Reviewed by me - Risk of complications The pt has a mod risk of morbidity or mortality based on: Need for prescription drug management The pt has a high risk of morbidity or mortality based on: Decision regarding hospitilization or escalation of hosp level of care - Departure Departure Disposition: Home Clinical Impression: Diverticulitis, Urinary tract infection with hematuria Condition: Good Critical Care Time: No Referrals: GEORGE LUNA MD [Primary Care Provider] - Follow up/PCP as directed Instructions: Severe Abdominal Pain, Adult (DC), Diverticulosis (DC), Urinary Tract Infection, Adult ED Additional Instructions: Followup with your Friday for diverticulitis and blood pressure and Urinary track infection. Return meantime if not improving, fever, vomiting, increased pain, or any other concerns. Prescriptions: Ondansetron ODT 4 MG [Zofran Odt 4 mg] 4 mg PO Q6H PRN PRN #10 tablet PRN Reason: Nausea Amox Tr/Potass Clav. 875 mg [Augmentin 875-125 Tablet] 875 mg PO BID #20 tablet Metronidazole 500 mg [Flagyl 500 MG] 500 mg PO TID #30 tablet
[2024-07-23 16:37] VITALS: TEMP 98.7
[2024-07-23] MEDS ORDERED: Hydromorphone 1 mg/ml Injection ONE (16:39)
[2024-07-23] MEDS ORDERED: Zofran 4 MG/2 ML VIAL ONE (16:39)
[2024-07-23] MEDS: Zofran 4 MG/2 ML VIAL IV ONE (16:41)
[2024-07-23] MEDS: Hydromorphone 1 mg/ml Injection IV ONE (16:41)
[2024-07-23 17:01] LABS: Absolute Neutrophil Ct (ANC) 11.07 x10^3/uL (1.56-6.13); BASOPHIL % 0.3 % (0.1-1.2); Basophil (Absolute #) 0.05 x10^3/uL (0.01-0.08); Eosinophil % 0.3 % (0.7-5.8); Eosinophil (Absolute #) 0.04 x10^3/uL (0.04-0.36); Hematocrit 43.4 % (34.1-44.9); IMMATURE GRAN # 0.05 x10^3u/L (0.001-0.031); IMMATURE GRAN % 0.3 % (0.001-0.429); Lymphocyte (Absolute #) 2.96 x10^3/uL (1.18-3.74); Lymphocytes % 19.6 % (19.3-51.7); Mean Cell Volume 90.8 fL (79.4-94.8); Mean Corpuscular Hemoglobin 31.4 pg (25.6-32.2); Mean Corpuscular Hgb Concent. 34.6 g/dL (32.2-35.5); Mean Platelet Volume 10.1 fL (9.4-12.3); Monocyte (Absolute #) 0.94 x10^3/uL (0.24-0.86); Monocytes % 6.2 % (4.7-12.5); Neutrophil % 73.3 % (34.0-71.1); Platelet Count 343 x10^3/uL (182-369); Red Blood Count 4.78 x10^6/uL (3.93-5.22); White Blood Count 15.1 x10^3/uL (3.98-10.04)
[2024-07-23 17:16] LABS: HCG SERUM TEST NEGATIVE (NEGATIVE)
[2024-07-23 17:37] LABS: ALBUMIN 4.6 g/dL (3.5-5.0); ANION GAP 13.8 MEQ/L (5-15); Calcium 9.7 mg/dL (8.4-10.2); Creatinine 1 0.92 mg/dL (0.52-1.04); EST GLOMERULAR FILTRATION RATE 69.1 ML/MIN; Potassium 3.5 mmol/L (3.5-5.1); Total Protein 8.5 g/dL (6.3-8.2)
[2024-07-23 17:44] LABS: Appearance Clear (Clear); Bacteria None Seen /HPF (None Seen); Bilirubin Negative (Negative); Blood Moderate (Negative); Epithelial Cells None Seen /HPF (None Seen); Glucose, Urine Negative (Negative); Hyaline Casts NONE SEEN /LPF (0-2); Ketones 15 (Negative); Leukocyte Esterase Small (Negative); Nitrite Negative (Negative); Ph 5.5 (4.6-8.0); Protein,Urine Dip 30 (Negative); Specific Gravity 1.015 (1.005-1.030)
[2024-07-23] MEDS ORDERED: ROCEPHIN 1 GM / 100 ML NaCl 1 GM/100 ML IVPB IV ONE (18:41)
[2024-07-23] MEDS: ROCEPHIN 1 GM / 100 ML NaCl 1 GM/100 ML IVPB IV ONE (18:42)
[2024-07-23 19:11] VITALS: RESP 18
[2024-07-23 19:50] VITALS: O2SAT 99
[2024-07-23 20:03] VITALS: BP 119/74; PULSE 88
--- NOTE | 2024-07-24 08:35 | XRAY ---
Indication: Lower abdominal pain. Multiple contiguous axial images obtained through the abdomen and pelvis without contrast. Comparison: None Lung bases demonstrates minimal dependent atelectasis. No infiltrate or effusion. Heart not enlarged. Noncontrasted stomach and bowel loops appear nonobstructed. Mild scattered descending and sigmoid diverticulosis. Mid sigmoid demonstrates moderate circumferential wall thickening with stranding favoring diverticulitis. Small pelvic reactive free fluid. No walled off fluid collection or free air. Previous cholecystectomy. Remaining liver, pancreas, spleen, adrenal glands, kidneys, ureters, bladder, and uterus are unremarkable for noncontrast exam. Minimal aortic calcifications without AAA. Osseous structures intact. No ventral or inguinal hernias. Impression: Scattered descending and sigmoid diverticulosis. Acute sigmoid diverticulitis with small free fluid.
== END 2024-07-23 20:10 | disposition home or self-care (01) ==
LOC: ED 16:21
DX: K57.92 Diverticulitis of intestine, part unspecified, without perforation or abscess without bleeding (principal); N39.0 Urinary tract infection, site not specified; R31.9 Hematuria, unspecified; R10.9 Unspecified abdominal pain; R10.2 Pelvic and perineal pain; I10 Essential (primary) hypertension; Z79.899 Other long term (current) drug therapy
CPT/HCPCS: 36415; 74176; 80053; 81001; 82150; 83605; 83690; 84703; 85025; 87086; 96374; 96375; 99284; J0696; J1171; J2405

== ENCOUNTER 2024-07-25 21:20 | Emergency (ER) | payer MEDICARE, OTHER ==
--- NOTE | 2024-07-25 21:27 | ERPHSYRPT ---
- History of Present Illness Time Seen by Provider: 07/25/24 21:27 Historian: patient, family Exam Limitations: no limitations Physician History: This is a 64-year-old white female patient of Dr. Luna who returns to the emergency department by private vehicle accompanied by her spouse because of worsening pain in her abdomen since her last visit in our emergency department on 07/23/2024. Patient had a complete workup performed including blood work, urinalysis and CT scan of the abdomen and pelvis. I reviewed the 07/23/2024 emergency department visit. I reviewed the radiographic and laboratory study results. Patient was diagnosed with sigmoid diverticulitis with small amount of free fluid but no free air present. Patient was provided a prescription for A ugmentin, Flagyl and Zofran. Patient showed a leukocytosis of 15,000, urinalysis showed ketonuria and a mild urinary tract infection. The patient's lactic acid level was 1.5. Patient returns because her symptoms are worse. She denies shortness of breath. She denies chest pain Activities at Onset: none Abdominal Pain Onset Location: epigastric, periumbilical, suprapubic Pain Radiation: no radiation Severity of Pain-Max: moderate Severity of Pain-Current: moderate Associated Symptoms: loss of appetite, nausea Previous symptoms: same symptoms as today, recently seen, recently treated Allergies/Adverse Reactions: No Known Drug Allergies Allergy (Verified 07/25/24 21:45) Home Medications: Potassium Chloride Tab* [Klor Con 10 MEQ] 10 meq PO DAILY 10/24/16 [History] Carvedilol 3.125 mg [Coreg 3.125 MG] 3.125 mg PO BID 09/07/17 [History] Hx Tetanus, Diphtheria Vaccination/Date Given: No Hx Influenza Vaccination/Date Given: No Hx Pneumococcal Vaccination/Date Given: No Travel Risk - International Travel Have you traveled outside of the country in past 3 weeks: No - Emerging Infectious Disease Are you exhibiting symptoms associated with any current EIDs: Yes Symptoms: Abdominal Pain - Review of Systems Constitutional: No Symptoms Eyes: No Symptoms Ears, Nose, & Throat: No Symptoms Respiratory: No Symptoms Cardiac: No Symptoms Abdominal/Gastrointestinal: Abdominal Pain, Nausea, Appetite Changes Genitourinary Symptoms: No Symptoms Musculoskeletal: No Symptoms Skin: No Symptoms Neurological: No Symptoms Psychological: No Symptoms Endocrine: No Symptoms Hematologic/Lymphatic: No Symptoms Immunological/Allergic: No Symptoms All Other Systems: Reviewed and Negative - Past Medical History Pertinent Past Medical History: Yes Neurological History: No Pertinent History ENT History: No Pertinent History Cardiac History: Hypertension Respiratory History: No Pertinent History Endocrine Medical History: No Pertinent History Musculoskeletal History: No Pertinent History GI Medical History: No Pertinent History History: No Pertinent History Psycho-Social History: No Pertinent History Female Reproductive Disorders: No Pertinent History Other Medical History: mitral valve prolapse - Past Surgical History Past Surgical History: Yes Neuro Surgical History: No Pertinent History Cardiac: No Pertinent History Respiratory: No Pertinent History Gastrointestinal: Appendectomy Genitourinary: No Pertinent History Musculoskeletal: No Pertinent History Female Surgical History: No Pertinent History - Social History Smoking Status: Never smoker Exposure to second hand smoke: No Drug Use: none Patient Lives Alone: No - Social Determinants of Health Will the patient participate in the screening: Yes Do you worry about a steady place to live?: No In the past 12 months,have you had to go without utilities?: No Transportation Issues: No Has anyone in your support network made you feel unsafe?: No Have you or anyone in your house had to go without enough: No - Nursing Vital Signs Nursing Vital Signs: Initial Vital Signs Temperature 98.5 F 07/25/24 21:32 Pulse Rate 87 07/25/24 21:32 Respiratory Rate 16 07/25/24 21:32 Blood Pressure 177/76 07/25/24 21:32 O2 Sat by Pulse Oximetry 98 07/25/24 21:32 Pain Scale Pain Intensity 3 - Physical Exam General Appearance: mild distress, alert, anxiety Eye Exam: PERRL/EOMI, eyes nml inspection Ears, Nose, Throat Exam: normal ENT inspection, moist mucous membranes Neck Exam: normal inspection, non-tender, supple, full range of motion Respiratory Exam: normal breath sounds, lungs clear, airway intact, No respiratory distress Cardiovascular Exam: regular rate/rhythm, normal heart sounds, normal peripheral pulses Gastrointestinal/Abdomen Exam: soft, normal bowel sounds, tenderness (Diffuse, mild to moderate tenderness to palpation), guarding (Mild to moderate tenderness to palpation), No rebound Pelvic Exam: not done Rectal Exam: not done Back Exam: normal inspection, normal range of motion, No CVA tenderness, No vertebral tenderness Extremity Exam: normal inspection, normal range of motion, pelvis stable Neurologic Exam: alert, oriented x 3, cooperative, rn private duty II-XII nml as tested, nml station & gait, sensation nml Skin Exam: normal color, warm, dry Lymphatic Exam: No adenopathy SpO2 Interpretation: normal O2 Delivery: Room Air - Course Nursing assessment & vital signs reviewed: Yes Ordered Tests: Active Orders 24 hr Category Date Time Status IV Insertion STAT Care 07/25/24 22:04 Active ABDOMEN AND PELVIS W/0 CONTRAS [CT] Stat Exams 07/25/24 22:04 Completed AMYLASE Stat Lab 07/25/24 22:11 Completed CBC W DIFF Stat Lab 07/25/24 22:11 Completed CMP Stat Lab 07/25/24 22:11 Completed LIPASE Stat Lab 07/25/24 22:11 Completed Lactic Acid Stat Lab 07/25/24 22:05 Completed UA W/RFX UR CULTURE Stat Lab 07/25/24 21:50 Completed Medication Summary Discontinued Medications Generic Name Dose Route Start Last Admin Trade Name Freq PRN Reason Stop Dose Admin Hydromorphone HCl 1 mg 07/25/24 22:04 07/25/24 22:24 Hydromorphone 1 Mg/1ml Inj IV 07/25/24 22:05 1 mg STAT ONE Administration Hydromorphone HCl Confirm 07/25/24 22:10 Hydromorphone 1 Mg/1ml Inj Administered 07/25/24 22:11 Dose 1 mg .ROUTE .STK-MED ONE Sodium Chloride 1,000 mls @ 999 mls/hr 07/25/24 22:04 07/25/24 22:25 Sodium Chloride 0.9% 1000 Ml IV 07/25/24 23:04 999 mls/hr .Q1H1M STA Administration Sodium Chloride Confirm 07/25/24 22:10 Sodium Chloride 0.9% 1000 Ml Administered 07/25/24 22:11 Dose 1,000 mls @ ud .ROUTE .STK-MED ONE Ondansetron HCl 4 mg 07/25/24 22:04 07/25/24 22:24 Ondansetron Hcl 4 Mg/2 Ml Vial IV 07/25/24 22:05 4 mg STAT ONE Administration Ondansetron HCl Confirm 07/25/24 22:09 Ondansetron Hcl 4 Mg/2 Ml Vial Administered 07/25/24 22:10 Dose 4 mg .ROUTE .STK-MED ONE Pantoprazole Sodium 40 mg 07/25/24 22:04 07/25/24 22:24 Pantoprazole 40 Mg Vial IV 07/25/24 22:05 40 mg STAT ONE Administration Pantoprazole Sodium Confirm 07/25/24 22:09 Pantoprazole 40 Mg Vial Administered 07/25/24 22:10 Dose 40 mg IV .STK-MED ONE Prochlorperazine Edisylate 5 mg 07/25/24 23:16 07/25/24 23:22 Prochlorperazine Edisylate 10 Mg/2 Ml Vial IV 07/25/24 23:17 5 mg STAT ONE Administration Prochlorperazine Edisylate Confirm 07/25/24 23:18 Prochlorperazine Edisylate 10 Mg/2 Ml Vial Administered 07/25/24 23:19 Dose 10 mg .ROUTE .STK-MED ONE Lab/Rad Data: Laboratory Result Diagrams 07/25/24 22:11 07/25/24 22:11 Laboratory Results 07/25/24 07/25/24 07/25/24 Range/Units 22:11 22:11 22:05 WBC 6.1 (3.98-10.04) x10^3/uL RBC 4.34 (3.93-5.22) x10^6/uL Hgb 13.9 (11.2-15.7) g/dL Hct 40.1 (34.1-44.9) % MCV 92.4 (79.4-94.8) fL MCH 32.0 (25.6-32.2) pg MCHC 34.7 (32.2-35.5) g/dL RDW 11.8 (11.7-14.4) % Plt Count 298 (182-369) x10^3/uL MPV 9.6 (9.4-12.3) fL Gran % 61.6 (34.0-71.1) % Immature Gran % (Auto) 0.2 (0.001-0.429) % Nucleat RBC Rel Count 0.0 (0.00-0.2) % Eos # (Auto) 0.11 (0.04-0.36) x10^3/uL Immature Gran # (Auto) 0.01 (0.001-0.031) x10^3u/L Absolute Lymphs (auto) 1.56 (1.18-3.74) x10^3/uL Absolute Monos (auto) 0.63 (0.24-0.86) x10^3/uL Absolute Nucleated RBC 0.00 (0.00-0.012) x10^3u/L Lymphocytes % 25.4 (19.3-51.7) % Monocytes % 10.3 (4.7-12.5) % Eosinophils % 1.8 (0.7-5.8) % Basophils % 0.7 (0.1-1.2) % Absolute Granulocytes 3.78 (1.56-6.13) x10^3/uL Basophils # 0.04 (0.01-0.08) x10^3/uL Sodium 137 (135-145) mmol/L Potassium 3.8 (3.5-5.1) mmol/L Chloride 103 (98-107) mmol/L Carbon Dioxide 26 (22-30) mmol/L Anion Gap 11.2 (5-15) MEQ/L BUN 13 (7-17) mg/dL Creatinine 0.99 (0.52-1.04) mg/dL Estimated GFR 63.3 ML/MIN Glucose 111 H (74-106) mg/dL Lactic Acid 1.1 (0.4-2.0) Calcium 9.5 (8.4-10.2) mg/dL Total Bilirubin 0.50 (0.2-1.3) mg/dL AST 29 (14-36) U/L ALT 32 (0-35) U/L Alkaline Phosphatase 143 H (38-126) U/L Serum Total Protein 7.3 (6.3-8.2) g/dL Albumin 4.0 (3.5-5.0) g/dL Amylase 109 (30-110) U/L Lipase 526 H (23-300) U/L Urine Color (Yellow) Urine Appearance (Clear) Urine pH (4.6-8.0) Ur Specific [place] (1.005-1.030) Urine Protein (Negative) Urine Glucose (UA) (Negative) mg/dL Urine Ketones (Negative) Urine Blood (Negative) Urine Nitrite (Negative) Urine Bilirubin (Negative) Urine Urobilinogen (0.2) mg/dL Ur Leukocyte Esterase (Negative) U Hyaline Cast (Auto) (0-2) /LPF Urine Microscopic RBC (0-5) /HPF Urine Microscopic WBC (0-5) /HPF Ur Epithelial Cells (None Seen) /HPF Urine Bacteria (None Seen) /HPF Urine Culture Reflexed (NO) 07/25/24 Range/Units 21:50 WBC (3.98-10.04) x10^3/uL RBC (3.93-5.22) x10^6/uL Hgb (11.2-15.7) g/dL Hct (34.1-44.9) % MCV (79.4-94.8) fL MCH (25.6-32.2) pg MCHC (32.2-35.5) g/dL RDW (11.7-14.4) % Plt Count (182-369) x10^3/uL MPV (9.4-12.3) fL Gran % (34.0-71.1) % Immature Gran % (Auto) (0.001-0.429) % Nucleat RBC Rel Count (0.00-0.2) % Eos # (Auto) (0.04-0.36) x10^3/uL Immature Gran # (Auto) (0.001-0.031) x10^3u/L Absolute Lymphs (auto) (1.18-3.74) x10^3/uL Absolute Monos (auto) (0.24-0.86) x10^3/uL Absolute Nucleated RBC (0.00-0.012) x10^3u/L Lymphocytes % (19.3-51.7) % Monocytes % (4.7-12.5) % Eosinophils % (0.7-5.8) % Basophils % (0.1-1.2) % Absolute Granulocytes (1.56-6.13) x10^3/uL Basophils # (0.01-0.08) x10^3/uL Sodium (135-145) mmol/L Potassium (3.5-5.1) mmol/L Chloride (98-107) mmol/L Carbon Dioxide (22-30) mmol/L Anion Gap (5-15) MEQ/L BUN (7-17) mg/dL Creatinine (0.52-1.04) mg/dL Estimated GFR ML/MIN Glucose (74-106) mg/dL Lactic Acid (0.4-2.0) Calcium (8.4-10.2) mg/dL Total Bilirubin (0.2-1.3) mg/dL AST (14-36) U/L ALT (0-35) U/L Alkaline Phosphatase (38-126) U/L Serum Total Protein (6.3-8.2) g/dL Albumin (3.5-5.0) g/dL Amylase (30-110) U/L Lipase (23-300) U/L Urine Color Yellow (Yellow) Urine Appearance Clear (Clear) Urine pH 5.5 (4.6-8.0) Ur Specific [place] 1.015 (1.005-1.030) Urine Protein Negative (Negative) Urine Glucose (UA) Negative (Negative) mg/dL Urine Ketones Negative (Negative) Urine Blood Small A (Negative) Urine Nitrite Negative (Negative) Urine Bilirubin Negative (Negative) Urine Urobilinogen 1.0 A (0.2) mg/dL Ur Leukocyte Esterase Trace A (Negative) U Hyaline Cast (Auto) NONE SEEN (0-2) /LPF Urine Microscopic RBC 3-5 (0-5) /HPF Urine Microscopic WBC 0-2 (0-5) /HPF Ur Epithelial Cells None Seen (None Seen) /HPF Urine Bacteria None Seen (None Seen) /HPF Urine Culture Reflexed NO (NO) - Progress Progress: improved, pain not gone completely Progress Note: 07/25/24 22:11 My medical decision making and the assignment of moderate complexity to this patient's medical issue today is based on review of the patient's past medical history, review the patient's medication list, reviewed patient drug allergy list, history present illness and physical findings on examination. The workup in this patient includes placement of intravenous line, infusion of normal saline solution, infusion of Dilaudid intravenously, infusion of Zofran int ravenously, infusion of Protonix intravenously, CBC, CMP, amylase, lipase, urinalysis, lactic acid level, CT scan of the abdomen pelvis without contrast. Differential diagnosis includes but is not limited to medication side effect/adverse reaction, worsening diverticulitis, worsening urinary tract infection 07/25/24 23:41 I interpreted the patient's laboratory data results. Based on the laboratory data results, the patient's lab results have improved when compared to the similar labs dated 07/23/2024. The CT scan of the abdomen pelvis was interpreted by the radiologist and I reviewed the impression. The impression states acute sigmoid diverticulitis. The verbiage does not include a comparison to the prior CT scan of the abdomen pelvis performed on 07/23/2024. The impression dictated today does not state anything about fluid in the pelvis. There is no mention of free air or abscess formation. 07/25/24 23:48 I reexamined the patient and discussed the laboratory data results and the CT scan findings. Clinically, the patient states she is feeling better. She prefers to go home. There is no specific indication to place her in the hospital. I think some of her symptoms are related to the side effects of Augmentin. Will have her stop Augmentin and I will add Cipro to the treatment regimen for diverticulitis. We will also send her home with a take-home packet of 2 tablets of Mcgrady 5/325. Additionally, I will remotely send a prescription for Mcgrady 5/325 to her pharmacy that she can take on an outpatient basis. Counseled pt/family regarding: lab results, diagnosis, rad results Medical Desision Making - Independent Historian Additional History obtained from: Spouse - Diagnostic Testing Diagnostic test were ordered, analyzed, and reviewed by me: Yes Radiological Interpretation: Reviewed by me, Teleradiologist Report - Risk of complications The pt has a mod risk of morbidity or mortality based on: Need for prescription drug management - Departure Departure Disposition: Home Clinical Impression: Sigmoid diverticulitis, Medication adverse effect Condition: Stable Critical Care Time: No Referrals: GEORGE LUNA MD [Primary Care Provider] - Follow up/PCP as directed Additional Instructions: Clear liquid diet. Avoid fatty greasy spicy foods. Stop the Augmentin. Take your new medication as prescribed. Call your primary care provider tomorrow, 07/26/2024, to make arranges for follow-up appointment for further evaluation management Prescriptions: Hydrocodone/APAP 5/325 [Mcgrady 5/325 mg] 1 each PO Q8H PRN PRN #9 tablet MDD 3 PRN Reason: Pain Ciprofloxacin [Cipro 500 MG] 500 mg PO BID #14 tablet
[2024-07-25 21:34] VITALS: RESP 16; TEMP 98.5
[2024-07-25] MEDS ORDERED: PROTONIX 40 MG IV IV ONE (22:09)
[2024-07-25] MEDS ORDERED: Zofran 4 MG/2 ML VIAL ONE (22:09)
[2024-07-25] MEDS ORDERED: Sodium Chloride 0.9% 1000 ML 1,000 ML ONE (22:10)
[2024-07-25] MEDS ORDERED: Hydromorphone 1 mg/ml Injection ONE (22:10)
[2024-07-25 22:13] LABS: Absolute Neutrophil Ct (ANC) 3.78 x10^3/uL (1.56-6.13); BASOPHIL % 0.7 % (0.1-1.2); Basophil (Absolute #) 0.04 x10^3/uL (0.01-0.08); Eosinophil % 1.8 % (0.7-5.8); Eosinophil (Absolute #) 0.11 x10^3/uL (0.04-0.36); Hematocrit 40.1 % (34.1-44.9); Hemoglobin 13.9 g/dL (11.2-15.7); IMMATURE GRAN # 0.01 x10^3u/L (0.001-0.031); IMMATURE GRAN % 0.2 % (0.001-0.429); Lymphocyte (Absolute #) 1.56 x10^3/uL (1.18-3.74); Lymphocytes % 25.4 % (19.3-51.7); Mean Cell Volume 92.4 fL (79.4-94.8); Mean Corpuscular Hgb Concent. 34.7 g/dL (32.2-35.5); Mean Platelet Volume 9.6 fL (9.4-12.3); Monocyte (Absolute #) 0.63 x10^3/uL (0.24-0.86); Monocytes % 10.3 % (4.7-12.5); Neutrophil % 61.6 % (34.0-71.1); Platelet Count 298 x10^3/uL (182-369); Red Blood Count 4.34 x10^6/uL (3.93-5.22); Red Cell Distribution Width 11.8 % (11.7-14.4); White Blood Count 6.1 x10^3/uL (3.98-10.04)
[2024-07-25 22:21] LABS: Appearance Clear (Clear); Bacteria None Seen /HPF (None Seen); Bilirubin Negative (Negative); Blood Small (Negative); Epithelial Cells None Seen /HPF (None Seen); Glucose, Urine Negative (Negative); Hyaline Casts NONE SEEN /LPF (0-2); Ketones Negative (Negative); Leukocyte Esterase Trace (Negative); Nitrite Negative (Negative); Ph 5.5 (4.6-8.0); Protein,Urine Dip Negative (Negative); Specific Gravity 1.015 (1.005-1.030); WBC 0-2 /HPF (0-5)
[2024-07-25 22:22] LABS: ANION GAP 11.2 MEQ/L (5-15); BILIRUBIN,TOTAL 0.5 mg/dL (0.2-1.3); Calcium 9.5 mg/dL (8.4-10.2); Creatinine 1 0.99 mg/dL (0.52-1.04); EST GLOMERULAR FILTRATION RATE 63.3 ML/MIN; Potassium 3.8 mmol/L (3.5-5.1); Total Protein 7.3 g/dL (6.3-8.2)
[2024-07-25] MEDS: Hydromorphone 1 mg/ml Injection IV ONE (22:24)
[2024-07-25] MEDS: Zofran 4 MG/2 ML VIAL IV ONE (22:24)
[2024-07-25] MEDS: PROTONIX 40 MG IV IV ONE (22:24)
[2024-07-25] MEDS: Sodium Chloride 0.9% 1000 ML 1,000 ML IV STA (22:25)
[2024-07-25] MEDS ORDERED: Compazine 10 MG/2 ML ONE (23:18)
[2024-07-25] MEDS: Compazine 10 MG/2 ML IV ONE (23:22)
--- NOTE | 2024-07-25 23:37 | XRAY ---
CLINICAL HISTORY: Follow-up sigmoid diverticulitis COMPARISON: - TECHNIQUE: Contiguous axial images were obtained from the level of the diaphragm to the pubic symphysis without intravenous or oral contrast. Coronal and sagittal reconstructions were likewise performed and indicated to increase the sensitivity for detecting clinically relevant pathology. CT scan was performed according to ALARA (as low as reasonable achievable). FINDINGS: The visualized lung bases are clear. Evaluation of the abdominal and pelvic visceral organs is limited without intravenous contrast. Focus of pneumobilia is seen in the right and left sectorial ducts. The unenhanced spleen, pancreas, and adrenal glands are grossly unremarkable. The gallbladder is not visualized. The kidneys are normal in size and attenuation without obvious calcification. There is no hydronephrosis or perinephric stranding. The ureters are normal in caliber. No adenopathy or fluid collections are seen. Small sized diverticula are seen in the sigmoid colon. There is segmetal thickening of the wall of the sigmoid colon with adjacent inflammatory fat stranding. The aorta shows atherosclerotic calcification. The urinary bladder is normal in contour. Pelvic viscera are grossly unremarkable. Scoliosis of the lumbar spine is seen. No aggressive appearing osseous lesions are identified. IMPRESSION: 1. Acute sigmoid diverticulitis. Electronically Signed by: Dheeraj Moser MD. (07/25/2024 23:33:36 EST)
[2024-07-25] MEDS ORDERED: NORCO 5/325 MG ONE (23:48)
[2024-07-25] MEDS: NORCO 5/325 MG PO ONE (23:57)
[2024-07-26 00:09] VITALS: BP 131/72; PULSE 66; O2SAT 94
== END 2024-07-26 00:10 | disposition home or self-care (01) ==
LOC: ED 21:20
DX: K57.92 Diverticulitis of intestine, part unspecified, without perforation or abscess without bleeding (principal); R10.9 Unspecified abdominal pain; I10 Essential (primary) hypertension; Z79.899 Other long term (current) drug therapy; T36.0X5A Adverse effect of penicillins, initial encounter
CPT/HCPCS: 36415; 74176; 80053; 81001; 82150; 83605; 83690; 85025; 96374; 96375; 99284; J1171; J2405; A9270-GY